=== PATIENT | male | born 1985 | race Caucasian/White ===

== ENCOUNTER 2017-11-05 18:01 | Emergency (ER) | payer SELFPAY ==
[2017-11-05] MEDS ORDERED: KETOROLAC TROMETHAMINE 60 MG/2 ML SDV IM ONE (19:58)
[2017-11-05] MEDS ORDERED: PENICILLIN V POTASSIUM 500 MG TABLET PO ONE (19:58)
[2017-11-05] MEDS ORDERED: ONDANSETRON 4 MG TAB.RAPDIS PO ONE (19:58)
--- NOTE | 2017-11-05 20:03 | ER Document Report ---
HPI - HPI Patient complains to provider of: Possible dental abscess into left sinus Onset: Other Onset/Duration: Worse Quality of pain: Throbbing Severity: Severe Pain Level: 5 Context: Patient complains of dental pain 3 days to right upper front tooth. Facial swelling today over left sinus. Patient has a history of dental abscesses that "ruptured into right sinus cavity" in which he had to have a drain placed and was hospitalized. Associated Symptoms: Nausea, Vomiting - Patient states he has been vomiting and he thinks it is due to the pain.. denies: Fever Exacerbated by: Denies Relieved by: Denies Similar symptoms previously: Yes Recently seen / treated by doctor: No - ROS ROS below otherwise negative: Yes Systems Reviewed and Negative: Yes All other systems reviewed and negative - CONSTITUTIONAL Constitutional: DENIES: Fever - EENT Notes: Left front upper middle tooth - NEURO Neurology: REPORTS: Headache - CARDIOVASCULAR Cardiovascular: DENIES: Chest pain - GASTROINTESTINAL Gastrointestinal: REPORTS: Nausea, Patient vomiting. DENIES: Abdominal Pain - DERM Skin Color: Normal Past Medical History - General Information source: Patient - Social History Smoking Status: Never Smoker Chew tobacco use (# tins/day): No Frequency of alcohol use: None Drug Abuse: None Lives with: Spouse/Significant other Family History: Reviewed & Not Pertinent Patient has suicidal ideation: No Patient has homicidal ideation: No - Medical History Medical History: Negative Past Surgical History: Reports: Hx Oral Surgery - abscess drained with drain tube placed. Vertical Provider Document - CONSTITUTIONAL Agree With Documented VS: Yes Exam Limitations: No Limitations General Appearance: WD/WN, Mild Distress - INFECTION CONTROL TRAVEL OUTSIDE OF THE [place] IN LAST 30 DAYS: No - HEENT HEENT: Atraumatic, Normal ENT Exam, Normocephalic Mouth Diagram: 1 - DK around all upper front teeth. No edema to gums or roof of mouth noted - NECK Neck: Normal Inspection - RESPIRATORY Respiratory: Breath Sounds Normal, No Respiratory Distress - CARDIOVASCULAR Cardiovascular: Regular Rate, Regular Rhythm - GI/ABDOMEN Gastrointestinal: Abdomen Soft, Abdomen Non-Tender - MUSCULOSKELETAL/EXTREMETIES Musculoskeletal/Extremeties: MAEW - NEURO Level of Consciousness: Awake, Alert, Appropriate - DERM Integumentary: Warm, Dry Notes: No facial erythema noted Course - Re-evaluation Re-evalutation: 11/05/17 21:00 CT was negative for dental abscess extending into the sinus. Does show chronic maxillary sinus disease on the left side along with maxillary periodontal disease. Patient verbalizes understanding. States he feels much better after the Toradol injection. - Vital Signs Vital signs: Temp Pulse Resp BP Pulse Ox 99.0 F 69 16 145/82 H 100 11/05/17 18:21 11/05/17 18:21 11/05/17 18:21 11/05/17 18:21 11/05/17 18:21 Discharge - Discharge Clinical Impression: Pain, dental Condition: Good Disposition: HOME, SELF-CARE Additional Instructions: TOOTHACHE: Your pain is due to dental decay. The tooth must be repaired in order for you to feel better. You will, therefore, be referred to a dentist. We do not have dentists on the staff at [facility]. Severe swelling or drainage around a tooth usually means a dental abscess. This also requires evaluation and treatment by the dentist, but antibiotics may be prescribed while awaiting dental treatment. You should be rechecked immediately if you develop major swelling of the face, increasing pain, a lump in the jaw or gums, headache, difficulty swallowing, or fever. PENICILLIN V K: You have been given a prescription for Penicillin VK. Your physician has determined that this is the best antibiotic for your condition. Pen VK can be taken with meals, however more of the antibiotic gets into the bloodstream if it's taken on an empty stomach. Penicillin usually has no side effects. However, allergy to penicillins is common. If you have had an allergic reaction to any drug of the penicillin family, you should never take any other penicillin. Notify your doctor at once if you develop hives, itching, swelling, faintness, or shortness of breath. FOLLOW-UP CARE: You have been referred for follow-up care to the dentists listed below. Call the dentists office for an appointment as you were instructed or within the next two days. If you experience worsening or a significant change in your symptoms, notify the physician immediately or return to the Emergency Department at any time for re-evaluation. [facility] [address] [phone] [facility] [address] [place] [address] [facility] [address] [facility] [address] [facility] [address] [facility] [place] [facility] [address] [email or web address] [address] [place] [address] Wednesday- 8:00am to 5:00 pm Will see patients from other [facility]. Charges based on income and family size and accepts Medicare, Medicaid, and Insurances Will pull molars [facility] [address] Hours of Operation 8:00 am - 4:30 pm weekdays The following dental offices accept Medicaid: [facility] Dr. Gabriel Dr. Olvera Dr. Shelton Dr. Orozco Abhishek Aburto, Ruth Ann, and [place] oral surgery Dr. Rubio ([place]) Dr. Finch ([place]) [facility] Drs. Watkins and Jordy ([place]) Dr. Barrientos ([place]) [facility] Dr. Deal ([place]) Drs. Mejia and ([place]) Medicaid Care Line Prescriptions: Ibuprofen 800 mg PO TID PRN #30 tablet PRN Reason: Penicillin V Potassium [Penicillin Vk 250 mg Tablet] 250 mg PO Q6 #28 tablet
--- NOTE | 2017-11-05 20:46 | RADIOLOGY REPORT (SQ) ---
EXAM DESCRIPTION: CT ORBIT/SELLA WITHOUT COMPLETED DATE/TIME: 11/05/2017 8:31 pm REASON FOR STUDY: sinus edema, dental infection COMPARISON: None. TECHNIQUE: Noncontrasted images through the orbits windowed for bone and soft tissue. Additional co isidro and sagittal reconstructed images reviewed. All images stored on PACS. All CT scanners at this facility use dose modulation, iterative reconstruction, and/or weight based d osing when appropriate to reduce radiation dose to as low as reasonably achievable (ALARA). [facility]: Dose Right [facility]: CareDose [facility]: Dose Right [facility]: Teradose 4D [facility]: Smart Superfocus RADIATION DOSE: CT Rad equipment meets quality standard of care and radiation dose reduction techniq ues were employed. CTDIvol: 30.4 mGy. DLP: 395 mGy-cm. mGy. LIMITATIONS: None. FINDINGS: FACIAL BONES: No fracture or bone lesion. ORBITS: Intact. No fracture. Symmetric intact globes and retroorbital soft tissues. PARANASAL SINUSES: Mild mucosal thickening left maxillary sinus. No fluid levels. SOFT TISSUES: No mass or edema. INFERIOR BRAIN: Limited view. No acute findings. OTHER: Suspect some maxillary periodontal disease, incompletely assessed. Note: The study was perfo rmed as an orbital study. Most of the oral cavity is not included in the field of view. IMPRESSION: Orbits intact. Suspect maxillary periodontal disease. Mild chronic appearing left maxi llary sinus disease. TECHNICAL DOCUMENTATION: JOB ID: [id number] Quality ID # [id number]: Final reports with documentation of one or more dose reduction techniques (e.g., Au tomated exposure control, adjustment of the mA and/or kV according to patient size, use of iterative reconstruction technique) 2010 [employer]- All Rights Reserved Reading location - IP/workstation name: [email or web address]
[2017-11-05 21:34] VITALS: BP 125/71
== END 2017-11-05 21:34 | disposition home or self-care (01) ==
LOC: ER 18:01
DX: K08.9 Disorder of teeth and supporting structures, unspecified (principal); R51 Headache; R11.2 Nausea with vomiting, unspecified
CPT/HCPCS: 99283; 96372; 70480; J1885; S0119

== ENCOUNTER 2019-04-19 18:04 | Emergency (ER) | payer BC ==
[2019-04-19] MEDS ORDERED: ONDANSETRON 4 MG TAB.RAPDIS PO ONE (18:47)
--- NOTE | 2019-04-19 18:48 | ER Document Report ---
ED Medical Screen (RME) - General Chief Complaint: Flank Pain Stated Complaint: ABDOMINAL PAIN Time Seen by Provider: 04/19/19 18:46 Mode of Arrival: Ambulatory Information source: Patient Notes: 33-year-old male presented to ED for complaint of GERD this is been steadily increasing for the last 2 weeks. He states it used to be just when he ate or drink certain things. He states this morning he woke up with severe pain in his right upper quadrant and has been getting worse all day is now going down into his groin. He states he has been having nausea and vomiting and his stools are different than normal. He is alert oriented respirations regular and unlabored speaking in full sentences. 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 He does smoke 1 cigar a week drinks daily and does not use any illicit drugs. 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 I have greeted and performed a rapid initial assessment of this patient. A comprehensive ED assessment and evaluation of the patient, analysis of test results and completion of medical decision making process will be conducted by an additional ED providers. TRAVEL OUTSIDE OF THE [place] IN LAST 30 DAYS: No - Related Data Allergies/Adverse Reactions: No Known Allergies Allergy (Verified 04/19/19 18:33) Past Medical History Renal/ Medical History: Denies: Hx Peritoneal Dialysis Past Surgical History: Reports: Hx Oral Surgery - abscess drained with drain tube placed. Physical Exam - Vital signs Vitals: Temp Pulse Resp BP Pulse Ox 98.4 F 106 H 20 125/90 H 98 04/19/19 18:17 04/19/19 18:17 04/19/19 18:17 04/19/19 18:17 04/19/19 18:17 Course - Vital Signs Vital signs: Temp Pulse Resp BP Pulse Ox 98.4 F 106 H 20 125/90 H 98 04/19/19 18:17 04/19/19 18:17 04/19/19 18:17 04/19/19 18:17 04/19/19 18:17
[2019-04-19 19:37] LABS: ABSOLUTE BASOPHILS # (AUTO) 0.1 10^3/uL (0.0-0.2); ABSOLUTE EOSINOPHILS # (AUTO) 0.3 10^3/uL (0.0-0.6); ABSOLUTE LYMPHOCYTES (AUTO) 1.8 10^3/uL (0.5-4.7); ABSOLUTE MONOCYTES (AUTO) 0.9 10^3/uL (0.1-1.4); ABSOLUTE NEUT (AUTO) 9.8 10^3/uL (1.7-8.2); BASOPHILS % (AUTO) 0.6 % (0-2); EOSINOPHILS % (AUTO) 2.1 % (0-6); LYMPHOCYTES % (AUTO) 14.2 % (13-45); MEAN CORPUSCULAR HEMOGLOBIN 31.3 pg (27.0-33.4); MEAN CORPUSCULAR VOLUME 92 fl (80-97); MONOCYTES % (AUTO) 7.2 % (3-13); PLATELET COUNT 243 10^3/uL (150-450); SEGMENTED NEUTROPHILS % (AUTO) 75.9 % (42-78); TOTAL CELLS COUNTED % (AUTO) 100 %
[2019-04-19 19:51] LABS: ALBUMIN 4.1 g/dL (3.5-5.0); ALKALINE PHOSPHATASE 71 U/L (38-126); ANION GAP 8 (5-19); ASPARTATE AMINO TRANSFERASE 21 U/L (17-59); BILIRUBIN,DIRECT 0.1 mg/dL (0.0-0.4); BILIRUBIN,TOTAL 0.4 mg/dL (0.2-1.3); BLOOD UREA NITROGEN 9 mg/dL (7-20); CALCIUM 9.4 mg/dL (8.4-10.2); CARBON DIOXIDE 27 mmol/L (22-30); CHLORIDE 103 mmol/L (98-107); GLUCOSE 90 mg/dL (75-110); POTASSIUM 3.9 mmol/L (3.6-5.0); TOTAL PROTEIN 6.8 g/dL (6.3-8.2)
[2019-04-19 19:52] LABS: APPEARANCE,URINE CLEAR; BILIRUBIN,URINE NEGATIVE (NEGATIVE); COLOR,URINE YELLOW; GLUCOSE, URINE NEGATIVE (NEGATIVE); KETONES,URINE NEGATIVE (NEGATIVE); LEUKOCYTE ESTERASE,URINE NEGATIVE (NEGATIVE); NITRITE,URINE NEGATIVE (NEGATIVE); PROTEIN,URINE NEGATIVE (NEGATIVE); URINE SPECIFIC GRAVITY 1.012; UROBILINOGEN,URINE NEGATIVE mg/dL (<2.0)
--- NOTE | 2019-04-19 20:26 | RADIOLOGY REPORT (SQ) ---
EXAM DESCRIPTION: US ABDOMEN LIMITED COMPLETED DATE/TME: 04/19/2019 18:46 CLINICAL HISTORY: 33 years, Male, right flank upper quad pain Findings: Pancreas is unremarkable to be visualized due to shadowing. Aorta is not aneurysmal, measuring up to 2.5 cm. Liver is mildly diffusely echogenic consistent with fatty infiltration. Measures 15.4 cm. Portal vein is patent with hepatopedal flow. Gallbladder is unremarkable with no evidence for calculus, wall thickening or pericholecystic fluid. No biliary dilatation with CBD measuring 3 mm. The right kidney measures 12.9 cm. No right hydronephrosis. There is evidence for right renal lower pole echogenic focus consistent with calculus. No right upper quadrant ascites. IMPRESSION: No acute disease. No evidence for cholelithiasis or cholecystitis. Nonobstructive right-sided nephrolithiasis suspected. No evidence for right sided urinary obstruction.
[2019-04-19] MEDS ORDERED: ONDANSETRON 4 MG TAB.RAPDIS ONE (20:58)
[2019-04-19] MEDS ORDERED: HYDROCODONE/ACETAMINOPHEN 5-325 MG TABLET PO ONE (21:47)
[2019-04-19] MEDS ORDERED: KETOROLAC TROMETHAMINE 60 MG/2 ML SDV IM ONE (21:47)
[2019-04-19] MEDS ORDERED: TAMSULOSIN HCL 0.4 MG CAP.SR.24H PO ONE (21:47)
[2019-04-19] MEDS ORDERED: ONDANSETRON ODT 4 MG TAB (6 TAB/ER DISP) PO PRN (21:47)
[2019-04-19] MEDS ORDERED: HYDROCODONE/ACETAMINOPHEN 5-325 MG (6 TAB/ER DISP) PO PRN (21:47)
--- NOTE | 2019-04-19 21:49 | ER Document Report ---
ED GI/ - General Chief Complaint: Flank Pain Stated Complaint: ABDOMINAL PAIN Time Seen by Provider: 04/19/19 18:46 Mode of Arrival: Ambulatory Notes: Patient is a 33-year-old male presents to the emergency department with a chief complaint of right upper abdominal pain. Patient reports this morning he developed right upper quadrant pain that has radiated to the lower abdomen and now into the right groin and suprapubic region throughout the day. Patient reports he does have a history of kidney stones but that this feels different. Patient reports he has had urinary frequency and burning with urination. Pat ient denies fever. Patient reports that the pain is intermittent. Patient reports he is also been having issues with his acid reflux. Patient reports his acid reflux is worse when he drinks alcohol or eats hot and spicy foods. Patient reports he does not take anything for his acid reflux. TRAVEL OUTSIDE OF THE [place] IN LAST 30 DAYS: No - Related Data Allergies/Adverse Reactions: No Known Allergies Allergy (Verified 04/19/19 18:33) Past Medical History - General Information source: Patient - Social History Smoking Status: Current Some Day Smoker Frequency of alcohol use: Social Drug Abuse: None Lives with: Family, Spouse/Significant other Family History: Reviewed & Not Pertinent Patient has suicidal ideation: No Patient has homicidal ideation: No - Past Medical History Cardiac Medical History: Reports: None Pulmonary Medical History: Reports: None EENT Medical History: Reports: None Neurological Medical History: Reports: None Endocrine Medical History: Reports: None Renal/ Medical History: Reports: None. Denies: Hx Peritoneal Dialysis Malignancy Medical History: Reports None GI Medical History: Reports: None Musculoskeletal Medical History: Reports None Skin Medical History: Reports None Psychiatric Medical History: Reports: None Traumatic Medical History: Reports: None Infectious Medical History: Reports: None Past Surgical History: Reports: Hx Oral Surgery - abscess drained with drain tube placed. Review of Systems - Review of Systems Constitutional: No symptoms reported EENT: No symptoms reported Cardiovascular: No symptoms reported Respiratory: No symptoms reported Gastrointestinal: See HPI Genitourinary: See HPI Male Genitourinary: No symptoms reported Musculoskeletal: No symptoms reported Skin: No symptoms reported Hematologic/Lymphatic: No symptoms reported Neurological/Psychological: No symptoms reported Physical Exam - Vital signs Vitals: Temp Pulse Resp BP Pulse Ox 98.4 F 106 H 20 125/90 H 98 04/19/19 18:17 04/19/19 18:17 04/19/19 18:17 04/19/19 18:17 04/19/19 18:17 Interpretation: Tachycardic - Notes Notes: GENERAL: Well-appearing, well-nourished and in no acute distress. HEAD: Atraumatic, normocephalic. EYES: Pupils equal round and reactive to light, extraocular movements intact, sclera anicteric, conjunctiva are normal. ENT: Nares patent, oropharynx clear without exudates. Moist mucous membranes. NECK: Normal range of motion, supple without lymphadenopathy or JVD. LUNGS: Breath sounds clear to auscultation bilaterally and equal. No wheezes rales or rhonchi. HEART: Regular rate and rhythm without murmurs, rubs or gallops. ABDOMEN: Soft, RUQ AND RLQ tenderness with palpation, normoactive bowel sounds. No guarding, no rebound. No masses appreciated. BACK: No cervical, thoracic, lumbar midline tenderness. No saddle anesthesia, normal distal neurovascular exam. GENITOURINARY: Deferred. EXTREMITIES: Normal range of motion, no pitting or edema. No clubbing or cyanos is. NEUROLOGICAL: Cranial nerves II through XII grossly intact. Normal speech, normal gait. PSYCH: Normal mood, normal affect. SKIN: Warm, Dry, normal turgor, no rashes or lesions noted. Course - Re-evaluation Re-evalutation: 04/19/19 21:56 I did discuss the ultrasound findings with the patient that he has a stone in the kidney. Patient does have significant right upper and right lower quadrant tenderness. I would like additional testing to rule out an appendicitis and a ureteral stone. I did discuss this the patient and he agrees with this treatment plan. 04/19/19 23:58 Patient does have acute non-complicated sigmoid diverticulitis. I did explain this finding with the patient and significant other. Patient denies pain at this time. Will treat with Flagyl and Cipro. I did inform the patient that he cannot drink while taking Flagyl. I did give the patient strict return precautions. Patient has been tolerating liquids. 04/20/19 01:55 Prior to discharge patient was afebrile, not tachycardic or hypotensive. Pa tient nontoxic-appearing. - Vital Signs Vital signs: Temp Pulse Resp BP Pulse Ox 98.3 F 79 20 119/71 96 04/20/19 00:19 04/20/19 00:19 04/19/19 18:17 04/20/19 00:19 04/20/19 00:19 - Laboratory Result Diagrams: 04/19/19 19:20 04/19/19 19:20 Laboratory results interpreted by me: 04/19/19 19:20 WBC 13.0 H Absolute Neuts (auto) 9.8 H 04/19/19 21:50 Patient has a mild leukocytosis of 13. Patient is not anemic or has a alteration in electrolytes. Kidney function is normal as well as his liver function. Patient does not have any signs of urinary tract infection. Laboratory 04/19/19 04/19/19 04/19/19 19:20 19:20 19:20 WBC 13.0 H RBC 5.10 Hgb 16.0 Hct 47.0 MCV 92 MCH 31.3 MCHC 34.0 RDW 13.0 Plt Count 243 Lymph % (Auto) 14.2 Mcculloch % (Auto) 7.2 Eos % (Auto) 2.1 Baso % (Auto) 0.6 Absolute Neuts (auto) 9.8 H Absolute Lymphs (auto) 1.8 Absolute Monos (auto) 0.9 Absolute Eos (auto) 0.3 Absolute Basos (auto) 0.1 Seg Neutrophils % 75.9 Sodium 138.0 Potassium 3.9 Chloride 103 Carbon Dioxide 27 Anion Gap 8 BUN 9 Creatinine 0.93 Est GFR ( Amer) > 60 Est GFR (MDRD) Non-Af > 60 Glucose 90 Calcium 9.4 Total Bilirubin 0.4 Direct Bilirubin 0.1 Neonat Total Bilirubin Not Reportable Neonat Direct Bilirubin Not Reportable Neonat Indirect Bili Not Reportable AST 21 ALT 25 Alkaline Phosphatase 71 Total Protein 6.8 Albumin 4.1 Lipase 73.5 Urine Color YELLOW Urine Appearance CLEAR Urine pH 7.0 Ur Specific [place] 1.012 Urine Protein NEGATIVE Urine Glucose (UA) NEGATIVE Urine Ketones NEGATIVE Urine Blood NEGATIVE Urine Nitrite NEGATIVE Urine Bilirubin NEGATIVE Urine Urobilinogen NEGATIVE Ur Leukocyte Esterase NEGATIVE Urine WBC (Auto) 1 Urine RBC (Auto) 1 Urine Mucus (Auto) RARE Urine Ascorbic Acid NEGATIVE - Diagnostic Test Radiology reviewed: Reports reviewed Radiology results interpreted by me: 04/19/19 21:51 Abdomen Ultrasound 04/19/19 18:46 IMPRESSION: No acute disease. No evidence for cholelithiasis or cholecystitis. Nonobstructive right-sided nephrolithiasis suspected. No evidence for right sided urinary obstruction. 04/19/19 23:43 Abdomen Ultrasound 04/19/19 18:46 IMPRESSION: No acute disease. No evidence for cholelithiasis or cholecystitis. Nonobstructive right-sided nephrolithiasis suspected. No evidence for right sided urinary obstruction. Abdomen/Pelvis CT 04/19/19 22:05 IMPRESSION: Findings consistent with acute uncomplicated sigmoid diverticulitis Unremarkable appendix Discharge - Discharge Clinical Impression: Diverticulitis, Nausea Abdominal pain Qualifiers: Abdominal location: right lower quadrant Qualified Code(s): R10.31 - Right lower quadrant pain Condition: Stable Disposition: HOME, SELF-CARE Additional Instructions: Today you are seen in the emergency department for abdominal pain. We did obt ain an ultrasound which did not show any abnormality with the gallbladder. You do have a stone in the kidney. At this time is not located in the ureter and does not appear like it is passing. Your CT of your abdomen did show diverticulitis. This is an inflammation of a small pouch attached to the colon. You are being treated with oral antibiotics. You do need to use a clear liquid diet over the next 2 to 3 days. I have attached a list of foods/liquids that are appropriate for this diet. Do not drink alcohol while on the Flagyl. Please seek medical attention immediately if you have increasing pain, change in your pain, vomiting, high fever, large amounts of blood in the stool, abdo trace swelling or any other concerning signs or symptoms. Diverticulitis You have been diagnosed as having diverticulitis. This is an inflammation of a small pouch attached to the colon, called a diverticulum. Many of these small pouches can form on the colon as you get older. They are often caused by constipation. When inflamed or infected, symptoms arise -- usually abdominal pain, constipation or diarrhea, fever, and blood in the stool. Severe diverticulitis may require hospitalization. More mild cases are usually treated with antibiotics and clear liquid diet. As you improve, a diet low in residue (one which forms little stool) is prescribed. When you are better, you should eat a high-fiber diet. Stool softeners (like Metamucil) are usually recommended. Call the doctor or go to the hospital if there is increasing pain, vomiti ng, high fever, large amounts of blood passed, or if bowel movements cease. Clear Liquid Diet A clear liquid diet has been prescribed. Start with small amounts. If these cause no worsening of symptoms, begin to take larger amounts of fluid. Ideally, these fluids should contain some sugar and minerals. Examples include: Soft drinks Apple juice Jello (with no fruit) Diluted broth Tea or uncreamed coffee This diet should be continued until the physician advises you to advance to other foods (usually when most symptoms have resolved). Most often you'll be told to advance to simple starchy foods such as soda crackers, white bread, unbuttered potato, or banana. Prescriptions: Ciprofloxacin HCl [Cipro 500 mg Tablet] 500 mg PO BID 7 Days #14 tablet Metronidazole [Flagyl 500 mg Tablet] 500 mg PO TID 7 Days #21 tablet Forms: Return to Work
[2019-04-19] MEDS ORDERED: KETOROLAC TROMETHAMINE INJ/PF 30 MG/1 ML SDV IV ONE (22:07)
--- NOTE | 2019-04-19 23:42 | RADIOLOGY REPORT (SQ) ---
EXAM DESCRIPTION: CT ABDOMEN PELVIS WITH IV CONTRAST COMPLETED DATE/TME: 04/19/2019 22:05 CLINICAL HISTORY: 33 years Male rlq pain COMPARISON: None. TECHNIQUE: Contiguous axial images obtained through the abdomen and pelvis following IV contrast. Reformatted images obtained. This exam was performed according to our department optimization program which includes automated exposure control, adjustment of the mA and/or kv according to patient size and/or use of iterative reconstruction technique. FINDINGS: The liver appears unremarkable. The spleen and pancreas appear unremarkable. No adrenal masses. The kidneys appear unremarkable. No hydronephrosis. The gallbladder is visualized. No aneurysmal dilatation of the aorta. No bowel obstruction. The appendix is unremarkable. There is diverticulosis with significant inflammatory changes involving the sigmoid colon consistent with diverticulitis. No evidence of abscess formation and no evidence of perforation. IMPRESSION: Findings consistent with acute uncomplicated sigmoid diverticulitis Unremarkable appendix
[2019-04-19] MEDS ORDERED: CIPROFLOXACIN HCL 500 MG TABLET PO ONE (23:55)
[2019-04-19] MEDS ORDERED: METRONIDAZOLE 500 MG TABLET PO ONE (23:55)
[2019-04-20 00:35] VITALS: BP 119/71
== END 2019-04-20 00:36 | disposition home or self-care (01) ==
LOC: ER 18:04
DX: K57.32 Diverticulitis of large intestine without perforation or abscess without bleeding (principal); N20.0 Calculus of kidney; R10.31 Right lower quadrant pain; R10.11 Right upper quadrant pain; R10.811 Right upper quadrant abdominal tenderness; R10.813 Right lower quadrant abdominal tenderness; F17.200 Nicotine dependence, unspecified, uncomplicated; D72.829 Elevated white blood cell count, unspecified
CPT/HCPCS: 99284; 96374; 36415; 87086; 83690; 85025; 80053; 81001; 76705; 74177; S0119; J1885